=== PATIENT | male | born 1990 ===

== ENCOUNTER → 2023-12-17 12:04 | Outpatient (CLI) | payer BC, SELFPAY ==
--- NOTE | 2023-12-17 12:05 | DI.RAD.S_ITS ---
PROCEDURE: XR LUMBAR SPINE MIN 4V INDICATIONS: left L5 Radiculopathy TECHNIQUE: 5 views of the lumbar spine were acquired, including bilateral oblique views. COMPARISON: Outside Facility, [facility], XR COMPLETE SPINE 4 + VIEWS, 12/09/2023, 17:29. FINDINGS: Bones: 5 nonrib-bearing vertebrae are present. Mildly exaggerated lumbar lordosis. Mild levocurvature of the lumbar spine with the apex at L3. Chronic-appearing ununited linear fracture of the L2 spinous process, best identified on the lateral view. No vertebral body compression fractures. No suspicious bony lesions. Mild facet arthropathy at L4-L5 and L5-S1. Soft tissues: Overlying bowel gas pattern is normal. No suspicious soft tissue calcifications. Oblique images: No pars defects. Mild disc height loss at L5-S1. IMPRESSION: 1. No acute radiographic abnormality of the lumbar spine. 2. No identifiable pars defects. Dictated by: Mak Berkowitz M.D. on 12/17/2023 at 14:58 Approved by: Mak Berkowitz M.D. on 12/17/2023 at 15:02
== END ==
PROVIDERS: Referring Provider Physical Medicine & Rehabilitation; Visit Provider Physical Medicine & Rehabilitation
DX: M54.17 Radiculopathy, lumbosacral region (principal)
CPT/HCPCS: 72110